=== PATIENT | male | born 1960 ===

== ENCOUNTER 2020-06-30 10:02 | Outpatient (CLI) | payer OTHER ==
--- NOTE | 2020-06-30 10:53 | SLEEP CARE CONSULTATION ---
Information from patient questionnaire entered by Ria Escobar. I have reviewed and concur with the information entered by Ria Escobar. This document represents the service I personally performed and the decisions made by me, Lima Fleming ARNP. History of Present Illness Service Date and Time: 06/30/2020 1002 Reason for Visit: New patient Chief Complaint: reports: Unrefreshed sleep (sometimes), Snoring, Observed pauses in breathing, Other (referral from ENT doctor). denies: Excessive daytime sleepiness, Frequent awakenings at night Date of Onset: unknown Usual bedtime: 10 pm Time it takes to fall asleep: approx 1 hour Snores at night: Yes (i believe) Observed to quit breathing while asleep: Yes Sleeps alone due to snoring: No Number of times waking at night: 1-2 Reasons for waking at night: reports: Other (i don't know). denies: Choking, Snoring, Gasping for air Toss, Turn, or Twitch while sleeping: Yes Recalls having dreams: Yes Usually gets out of bed at: 6 am Feels refreshed in the morning: Yes (sometimes he doesn't) Morning headache: No Sleepy or fatigued during the day: No Ever fallen asleep while driving: No Takes day naps: No Dreams during day naps: No Prior sleep studies: No Additional HPI information: I had the pleasure of seeing ROBYN MOSES today regarding the possibility of him having a sleep disorder. His current complaints are observed pauses in breathing and snoring according to his . He was seeing an ENT who referred him for evaluation. He does have a history of diabetes, taking insulin and hypertension. He states he gets white coat syndrome at the office and his blood pressure goes up. He did not take his morning blood pressure medications this morning as usual. - Parasomnia Symptoms Ever been unable to move upon waking from sleep: No Walks in sleep: No Talks in sleep: No Ever acted out dreams in sleep: No Ever felt weak in the knees when startled or emotional: No Bothered by creepy, crawly, restless sensations in legs: No Problems with memory or concentration: No Subjective Initial [place] Sleepiness Scale score: 7 (in 2020) Past Medical History Past Medical History: reports: Hypertension, Diabetes, Other (Goiter issue, had 1/2 throid out in 2004). denies: Arrythmia, Anxiety, Depression, Mood disorder, GERD Social History The patient's occupation is a [employer]. Patient is and lives in [place]. Have you smoked in the past 12 months: No Alcohol use: Yes Alcohol amount and frequency: 1 glass once a month Caffeine use: Yes Caffeine amount and frequency: 2 cups a day Family History Family history of sleep disordered breathing: No Allergies and Home Medications Drug allergies reviewed: Yes (NKDA) Home medication list reviewed: Yes Allergy and home medication list: Insulin Metformin Simvastatin Aspirin Loratidine Atorvastatin Review of Systems Weight loss over past 5 years: 30 Cardiovascular: reports: high blood pressure Ear/Nose/Throat: reports: wisdom teeth removed. denies: tonsillectomy Endocrine: reports: history of goiter Physical Exam Blood Pressure: 152/80 (usually elevated at office, no bp meds yet this am) Cuff size: long Heart Rate: 76 O2 Saturation: 98 Height: 5 ft 5 in Weight: 204 lb Body Mass Index: 33.9 BMI Classification: Obese Neck circumference: 18.75 (inches) Nostrils: patent to airflow Turbinates: normal Mouth and throat: narrow oropharynx Uvula visualization: 50% Mallampati Class II Tongue: enlarged in size with teeth newman on lateral edges Tonsils: 2+ Chin and jaw: normal size and position Neck: normal w/o lymphadenopathy or thyromegaly Heart: regular rate and rhythm Lungs: clear bilaterally Impression and Plan 1. Suspected Obstructive Sleep Apnea-Hypopnea Syndrome, as suggested by a history of loud and irregular snoring and observed cessation of breath while asleep. He has a history of diabetes and hypertension. I reviewed with the patient that a narrow oropharynx and obesity are common predisposing factors for obstructive sleep apnea-hypopnea syndrome. I recommend proceeding to polysomnography to confirm the diagnosis and to assess severity. If the patient has significant sleep disordered breathing, a manual CPAP titration study will also be performed to find the optimal treatment pressure. I informed the patient of what the sleep studies involve and after some discussion, obtained agreement to proceed. The pathophysiology of obstructive sleep apnea-hypopnea syndrome was discussed with the patient and health risks of cardiovascular and cerebrovascular disease if not treated. AAS brochure for obstructive sleep apnea-hypopnea syndrome given and reviewed. Risks of drowsy driving discussed in detail and patient advised to avoid long distance driving and to bone char puller at the first sign of drowsiness. Patient agreed to plan. 2. Elevated blood pressure with history of hypertension. His blood pressure was elevated at 215/104 with wrist BP cuff and 152/80 with long biceps cuff. He states he has anxiety at doctors offices and he forgot to take his medications this morning as usual. He denied any headache, chest pain, palpitations or shortness of breath in the office today. I advised him to go home and take his blood pressure medication and follow up with his PCP as needed. * Schedule polysomnography +- manual CPAP titration study and return in 1-2 weeks after the study to discuss result and initiate therapy. * Avoid long distance driving or driving when feeling sleepy. * Avoid alcohol, sedative and muscle relaxant around bedtime. * Attempt to lose weight. * Review instructions provided by trained office staff on how to prepare for the sleep study. * Return for follow-up after sleep study completed. Counseling Topics: Weight loss health impact Visit Type: In Office Time Spent with Patient (minutes): 31 Provider Statement: I spent 100% of the Face to Face Visit with the patient with greater than 50% spent counseling the patient and coordination of care.
[2020-06-30 10:54] VITALS: BP 152/80
== END 2020-06-30 10:03 | disposition home or self-care (01) ==
LOC: SC 10:02
PROVIDERS: ATTEND Nurse Practitioner Family
DX: R06.83 Snoring (principal); R06.81 Apnea, not elsewhere classified; I10 Essential (primary) hypertension; E66.9 Obesity, unspecified; Z68.33 Body mass index [BMI] 33.0-33.9, adult; E11.9 Type 2 diabetes mellitus without complications; Z79.4 Long term (current) use of insulin; Z79.899 Other long term (current) drug therapy
CPT/HCPCS: 99203; 99212

== ENCOUNTER 2021-05-12 06:31 | Day surgery (SDC) | payer OTHER ==
[~2021-05-12 06:31] MED LIST: CYCLOPENTOLATE 1% OPHTH DROPS 2 ML ONE; KETOROLAC 0.45% OPHTH DROPS ONE; PHENYLEPHRINE 2.5% OPHTH 2 ML DROPS ONE; PROPARACAINE 0.5% OPHTH DROPS 15 ML ONE
[2021-05-12] MEDS ORDERED: LACTATED RINGERS 1,000 ML IV ONE ×2 (06:39→07:45)
[2021-05-12] MEDS ORDERED: EPINEPHrine 1 MG/ML AMP ONE (06:54)
[2021-05-12] MEDS ORDERED: BRIMONIDINE 0.2% OPHTH DROPS 5 ML ONE (06:54)
[2021-05-12] MEDS ORDERED: TRIAMCIN/MOXIFLOX OPHTHALMIC 0.6 ML VIAL IO ONE ×2 (06:54→07:31)
[2021-05-12] MEDS ORDERED: TIMOLOL 0.5% OPHTH DROPS ONE (06:55)
[2021-05-12] MEDS ORDERED: VANCOMYCIN OPHTHALMI 8MG/0.8ML 8 MG/0.8 ML SYRINGE IO ONE ×2 (06:55→07:31)
[2021-05-12] MEDS ORDERED: BSS/LIDOCAINE/EPINEPHRINE 1 ML SYRINGE ONE (06:55)
[2021-05-12] MEDS ORDERED: MIDAZOLAM 2 MG/2 ML VIAL ONE (07:15)
[2021-05-12] MEDS ORDERED: fentaNYL 100 MCG/2 ML VIAL ONE (07:15)
--- NOTE | 2021-05-12 07:17 | ANESTHESIA ---
Pre-Anesthesia VS, & Labs - Diagnosis right cataract - Procedure right cataract extraction with intraocular lens Vital Signs: Temp Pulse Resp BP Pulse Ox 672941 C H 82 16 212/108 H 100 05/12/21 07:03 05/12/21 06:40 05/12/21 06:40 05/12/21 06:40 05/12/21 06:40 Height: 5 ft 5 in Weight (kg): 88 kg Body Mass Index: 32.3 BMI Classification: Obese - NPO >8 hours - Lab Results Current Lab Results: Laboratory Tests 05/12/21 06:54: POC Whole Bld Glucose 123 H Home Medications and Allergies Home Medications: Ambulatory Orders Aspirin [Aspirin EC] 81 mg PO DAILY 05/11/21 Atorvastatin [Lipitor] 20 mg PO DAILY 05/11/21 Dulaglutide [Trulicity] 1.5 mg SQ OAW 05/11/21 Insulin Glargine [Lantus Solostar] 27 unit INJ QPM 05/11/21 Loratadine [Claritin] 10 mg PO DAILY 05/11/21 Metformin HCl [Metformin ER Osmotic] 1,000 mg PO BID 05/11/21 Telmisartan/Hydrochlorothiazid [Micardis Hct 80-12.5 mg Tablet] 1 each PO DAILY 05/11/21 Aspirin [Aspirin EC] 81 mg PO DAILY 05/11/21 Atorvastatin [Lipitor] 20 mg PO DAILY 05/11/21 Dulaglutide [Trulicity] 1.5 mg SQ OAW 05/11/21 Insulin Glargine [Lantus Solostar] 27 unit INJ QPM 05/11/21 Loratadine [Claritin] 10 mg PO DAILY 05/11/21 Metformin HCl [Metformin ER Osmotic] 1,000 mg PO BID 05/11/21 Telmisartan/Hydrochlorothiazid [Micardis Hct 80-12.5 mg Tablet] 1 each PO DAILY 05/11/21 Allergies/Adverse Reactions: Allergies Allergy/AdvReac Type Severity Reaction Status Date / Time No Known Drug Allergies Allergy Verified 05/11/21 13:03 Anes History & Medical History - Anesthetic History Anesthesia Complications: reports: No previous complications - Medical History Cardiovascular: reports: Hypertension, High cholesterol Pulmonary: reports: None Gastrointestinal: reports: None Urinary: reports: None Musculoskeletal: reports: None Endocrine/Autoimmune: reports: Type 2 diabetes Skin: reports: None - Surgical History Eyes Ears Nose Throat (EENT): reports: Other (thyroidectomy) Exam General: Alert, Oriented x3 Dental: WNL Mouth Opening: Greater than 4 Fingerbreadths Neck Mobility: Normal Mallampati classification: II Thyromental Distance: greater than 6 cm Respiratory: Lungs clear Cardiovascular: Regular rate, Normal S1, Normal S2 Plan Anesthesia Type: MAC Consent for Procedure(s) Verified and Reviewed: Yes Code Status: Attempt Resuscitation ASA classification: 2-Mild systemic disease Is this case an emergency?: No
[2021-05-12] MEDS ORDERED: BRIMONIDINE 0.2% OPHTH DROPS 5 ML OPTH ONE (07:30)
[2021-05-12] MEDS ORDERED: EPINEPHrine 1 MG/ML AMP IR ONE (07:30)
[2021-05-12] MEDS ORDERED: TIMOLOL 0.5% OPHTH DROPS OPTH ONE (07:30)
[2021-05-12] MEDS ORDERED: BSS/LIDOCAINE/EPINEPHRINE 1 ML SYRINGE IO ONE (07:31)
[2021-05-12] MEDS ORDERED: PROPARACAINE 0.5% OPHTH DROPS 15 ML EACHEYE ONE (07:31)
[2021-05-12] MEDS ORDERED: LABETALOL 5 MG/1 ML 20 ML MDV ONE (07:34)
--- NOTE | 2021-05-12 07:56 | OPERATIVE REPORT ---
Operative Report - Other Other Information/Narrative: Date of Surgery: 05/12/21 Preop Dx: Visually significant cataract right eye. This was the first cataract surgery. Postop Dx: Same Procedure: Phacoemulsification with posterior chamber intraocular lens implant right eye Surgeon: Dr. Tucker Sanchez Anesthesia: Monitored anesthesia care Complications: None Operative Indications: This is a 60-year-old M with progressive vision loss in the right eye due to 1-2+ nuclear sclerotic, 3+ posterior subcapsular, and 2+ anterior subcapsular vacuolar cataract. Best corrected visual acuity was 20/60 with glare to hand motion vision in the right eye. Indications for surgery were: - Overall decrease in vision - Difficulty seeing words on a computer screen - Difficulty reading - Difficulty seeing words, closed captions, or game scores on TV - Difficulty seeing street signs - Difficulty driving in low light or at night - Difficulty driving at night because of headlights from other vehicles - Difficulty with glare or bright lights in any situation - Decreased acuity with firearms The patient was consented at length concerning the risks and benefits of cataract surgery after which the patient expressed a desire to proceed with surgery. Operative Procedure: The patient was taken into OR#3 and placed under monitored anesthesia care. A surgical time-out was conducted confirming correct patient, correct procedure, and correct surgical site. The patient was given topical anesthesia and then prepped and draped in the usual sterile fashion. The eye was entered at the 6 and 3 oclock positions. Intracameral Shugarcaine was injected into the anterior chamber followed by a dispersive viscoelastic. A continuous-tear curvilinear capsulorhexis was performed. The nucleus was hydrodissected and phacoemulsified. The cortex was evacuated using automated infusion and aspiration. A cohesive viscoelastic was injected into the capsular bag and a 21.0 diopter intraocular lens was inserted into the bag. Infusion and aspiration were used to evacuate the viscoelastic materials from the eye. The wounds were hydrated and the eye inflated to physiologic pressure using balanced salt solution. Approximately 0.25ml of a mixture of triamcinolone and moxifloxacin was injected trans-sclerally into the vitreous in the inferotemporal quadrant using a 30 gauge cannula. An additional 0.55ml of a mixture of triamcinolone, moxifloxacin, and vancomycin was injected subconjunctivally in the superior quadrant for infection and inflammation prophylaxis. Wound integrity was checked with Weck-Melanie sponges. The patient was taken from the operating room in good condition and given post-op instructions.
[2021-05-12 08:00] VITALS: BP 178/95
--- NOTE | 2021-05-12 08:15 | ANESTHESIA POST OP EVALUATION ---
Anesthesia Post Eval - Post Anesthesia Eval Vitals: Last Vital Signs Temp 36.7 C 05/12/21 07:43 Pulse 84 05/12/21 07:57 Resp 14 05/12/21 07:57 BP 178/95 H 05/12/21 07:57 Pulse Ox 96 05/12/21 07:57 CV Function Including HR & BP: Stable Pain Control: Satisfactory Nausea & Vomiting: Negative Mental Status: Baseline Respiratory Status: Airway Patent Hydration Status: Satisfactory Anesthesia Complications: None
== END 2021-05-12 06:32 | disposition home or self-care (01) ==
LOC: SDS 06:31
PROVIDERS: ATTEND Ophthalmology
DX: E11.36 Type 2 diabetes mellitus with diabetic cataract (principal); H25.811 Combined forms of age-related cataract, right eye; I10 Essential (primary) hypertension; E78.00 Pure hypercholesterolemia, unspecified; E66.9 Obesity, unspecified; Z68.32 Body mass index [BMI] 32.0-32.9, adult; Z79.82 Long term (current) use of aspirin; Z79.4 Long term (current) use of insulin; Z79.84 Long term (current) use of oral hypoglycemic drugs; Z79.899 Other long term (current) drug therapy
CPT/HCPCS: 66984; A9270; J3490; J7120

== ENCOUNTER 2021-08-11 06:29 | Day surgery (SDC) | payer OTHER ==
[2021-08-11] MEDS ORDERED: LACTATED RINGERS 1,000 ML IV ONE (06:40)
--- NOTE | 2021-08-11 07:23 | ANESTHESIA ---
Pre-Anesthesia VS, & Labs - Diagnosis L cataract - Procedure L PhacoIOL Vital Signs: Temp Pulse Resp BP Pulse Ox 36.4 C L 93 16 194/102 H 100 08/11/21 06:36 08/11/21 06:36 08/11/21 06:36 08/11/21 06:36 08/11/21 06:36 Height: 5 ft 5 in Weight (kg): 88.3 kg Body Mass Index: 32.3 BMI Classification: Obese - NPO >8 hours - Lab Results Current Lab Results: Laboratory Tests 08/11/21 06:51: POC Whole Bld Glucose 121 H Home Medications and Allergies Aspirin [Aspirin EC] 81 mg PO DAILY 05/11/21 Atorvastatin [Lipitor] 20 mg PO DAILY 05/11/21 Dulaglutide [Trulicity] 1.5 mg SQ OAW 05/11/21 Insulin Glargine [Lantus Solostar] 27 unit INJ QPM 05/11/21 Loratadine [Claritin] 10 mg PO DAILY 05/11/21 Metformin HCl [Metformin ER Osmotic] 1,000 mg PO BID 05/11/21 Telmisartan/Hydrochlorothiazid [Micardis Hct 80-12.5 mg Tablet] 1 each PO DAILY 05/11/21 Allergies/Adverse Reactions: Allergies Allergy/AdvReac Type Severity Reaction Status Date / Time No Known Drug Allergies Allergy Verified 08/11/21 06:20 Anes History & Medical History - Anesthetic History Anesthesia Complications: reports: No previous complications Family history of Anesthesia Complications: Denies Family history of Malignant Hyperthermia: Denies - Medical History Cardiovascular: reports: Hypertension, High cholesterol Pulmonary: reports: None Gastrointestinal: reports: None Urinary: reports: None Musculoskeletal: reports: None Endocrine/Autoimmune: reports: Type 2 diabetes Skin: reports: None - Surgical History Eyes Ears Nose Throat (EENT): reports: Cataracts, Other Exam General: Alert, Oriented x3, Cooperative Dental: WNL Mouth Openin Fingerbreadth Neck Mobility: Normal Mallampati classification: II Respiratory: Lungs clear Cardiovascular: Regular rate Plan Anesthesia Type: MAC Consent for Procedure(s) Verified and Reviewed: Yes Code Status: Attempt Resuscitation ASA classification: 3-Severe systemic disease Is this case an emergency?: No
[2021-08-11] MEDS ORDERED: MIDAZOLAM 2 MG/2 ML VIAL ONE ×2 (07:35→07:44)
[2021-08-11] MEDS ORDERED: TIMOLOL 0.5% OPHTH DROPS OPTH ONE (07:37)
[2021-08-11] MEDS ORDERED: BRIMONIDINE 0.2% OPHTH DROPS 5 ML OPTH ONE (07:37)
[2021-08-11] MEDS ORDERED: EPINEPHrine 1 MG/ML AMP IR ONE (07:37)
[2021-08-11] MEDS ORDERED: TRIAMCIN/MOXIFLOX OPHTHALMIC 0.6 ML VIAL IO ONE (07:38)
[2021-08-11] MEDS ORDERED: VANCOMYCIN OPHTHALMI 8MG/0.8ML 8 MG/0.8 ML SYRINGE IO ONE (07:38)
[2021-08-11] MEDS ORDERED: BSS/LIDOCAINE/EPINEPHRINE 1 ML SYRINGE IO ONE (07:38)
[2021-08-11] MEDS ORDERED: PROPARACAINE 0.5% OPHTH DROPS 15 ML EACHEYE ONE (07:38)
[2021-08-11] MEDS ORDERED: LACTATED RINGERS 800 ML IV ONE (07:55)
--- NOTE | 2021-08-11 08:01 | ANESTHESIA POST OP EVALUATION ---
Anesthesia Post Eval - Post Anesthesia Eval Vitals: Last Vital Signs Temp 36.9 C 08/11/21 07:55 Pulse 95 08/11/21 07:55 Resp 16 08/11/21 07:55 BP 175/96 H 08/11/21 07:55 Pulse Ox 100 08/11/21 07:55 CV Function Including HR & BP: Stable Pain Control: Satisfactory Nausea & Vomiting: Negative Mental Status: Baseline Respiratory Status: Airway Patent Hydration Status: Satisfactory Anesthesia Complications: None
[2021-08-11 08:02] VITALS: BP 151/108
--- NOTE | 2021-08-11 08:07 | OPERATIVE REPORT ---
Operative Report - Other Other Information/Narrative: Date of Surgery: 08/11/21 Preop Dx: Visually significant cataract left eye. Cataract surgery was performed in the right eye on . Postop Dx: Same Procedure: Phacoemulsification with posterior chamber intraocular lens implant left eye Surgeon: Dr. Tucker Sanchez Anesthesia: Monitored anesthesia care Complications: None Operative Indications: This is a 60-year-old M with progressive vision loss in the left eye due to 1-2+ nuclear sclerotic, 2+ posterior subcapsular, and 2+ anterior capsular cataract. Best corrected visual acuity was 20/25 with glare to 20/100 vision in the left eye. Indications for surgery were: - Overall decrease in vision - Difficulty seeing words on a computer screen - Difficulty reading - Difficulty seeing words, closed captions, or game scores on TV - Difficulty driving in low light or at night - Difficulty driving at night because of headlights from other vehicles - Difficulty with glare or bright lights in any situation - Decreased acuity with firearms The patient was consented at length concerning the risks and benefits of cataract surgery after which the patient expressed a desire to proceed with surgery. Operative Procedure: The patient was taken into OR#3 and placed under monitored anesthesia care. A surgical time-out was conducted confirming correct patient, correct procedure, and correct surgical site. The patient was given topical anesthesia and then prepped and draped in the usual sterile fashion. The eye was entered at the 6 and 3 oclock positions. Intracameral Shugarcaine was injected into the anterior chamber followed by a dispersive viscoelastic. A continuous-tear curvilinear capsulorhexis was performed. The nucleus was hydrodissected and phacoemulsified. The cortex was evacuated using automated infusion and aspiration. A cohesive viscoelastic was injected into the capsular bag and a 22.5 diopter intraocular lens was inserted into the bag. Infusion and aspiration were used to evacuate the viscoelastic materials from the eye. The wounds were hydrated and the eye inflated to physiologic pressure using balanced salt solution. Approximately 0.25ml of a mixture of triamcinolone and moxifloxacin was injected trans-sclerally into the vitreous in the inferotemporal quadrant using a 30 gauge cannula. An additional 0.55ml of a mixture of triamcinolone, moxifloxacin, and vancomycin was injected subconjunctivally in the superior quadrant for infection and inflammation prophylaxis. Wound integrity was checked with Weck-Melanie sponges. The patient was taken from the operating room in good condition and given post-op instructions.
== END 2021-08-11 06:30 | disposition home or self-care (01) ==
LOC: SDS 06:29
PROVIDERS: ATTEND Ophthalmology
DX: E11.36 Type 2 diabetes mellitus with diabetic cataract (principal); H25.812 Combined forms of age-related cataract, left eye; E11.3293 Type 2 diabetes mellitus with mild nonproliferative diabetic retinopathy without macular edema, bilateral; Z79.4 Long term (current) use of insulin; Z79.84 Long term (current) use of oral hypoglycemic drugs; Z79.899 Other long term (current) drug therapy; Z98.41 Cataract extraction status, right eye; E66.9 Obesity, unspecified; Z68.32 Body mass index [BMI] 32.0-32.9, adult
CPT/HCPCS: 66984; A9270; J3490; J7120

== ENCOUNTER 2022-09-02 09:59 | Outpatient (CLI) | payer OTHER | END 2022-09-02 23:59 | disposition short-term general hospital (02) | LOC: EMS 09:59 | DX: R07.9 Chest pain, unspecified (principal) | CPT/HCPCS: A0425; A0427 ==

== ENCOUNTER 2022-09-14 19:59 | Emergency (ER) | payer OTHER ==
[2022-09-14 21:15] LABS: CALCIUM 7.8 mg/dL (8.5-10.3); CREATININE 4.1 mg/dL (0.6-1.2)
--- NOTE | 2022-09-14 21:47 | ED Physician Documentation ---
History of Present Illness - Stated complaint Stated Complaint: MEDICATION REQUEST FROM DOC - Chief complaint Chief Complaint: General - History obtained from History obtained from: Patient, Family - History of Present Illness Timing: Today - Additonal information Additional information: Chandler Allred is a 61-year-old male with a history of diabetes hypertension and coronary artery disease. He has recently had a stent placed and he is known to have renal insufficiency. The patient reports that he is feeling much improved after getting his stent placed and has an appointment to follow-up with his laborer carpentry dock and with his dredging inspector. He was asked today to come to the emergency department when a blood specimen showed a potassium of 6.0. Review of Systems Constitutional: denies: Fever Ears: denies: Ear pain Nose: denies: Congestion Throat: denies: Sore throat Cardiac: denies: Chest pain / pressure, Palpitations Respiratory: denies: Dyspnea, Cough GI: denies: Abdominal Pain, Nausea, Vomiting, Constipation, Diarrhea : denies: Dysuria, Frequency PD PAST MEDICAL HISTORY - Past Medical History Cardiovascular: Hypertension, High cholesterol Respiratory: None Endocrine/Autoimmune: Type 2 diabetes GI: None : None HEENT: Chronic vision loss Psych: None Musculoskeletal: None Derm: None - Past Surgical History HEENT: Cataracts, Other - Present Medications Home Medications: Ambulatory Orders Medication Instructions Recorded Confirmed Aspirin [Aspirin EC] 81 mg PO DAILY 05/11/21 08/11/21 Atorvastatin [Lipitor] 20 mg PO DAILY 05/11/21 08/11/21 Dulaglutide [Trulicity] 1.5 mg SQ OAW 05/11/21 08/11/21 Insulin Glargine [Lantus Solostar] 27 unit INJ QPM 05/11/21 08/11/21 Loratadine [Claritin] 10 mg PO DAILY 05/11/21 08/11/21 Metformin HCl [Metformin ER 1,000 mg PO BID 05/11/21 08/11/21 Osmotic] Telmisartan/Hydrochlorothiazid 1 each PO DAILY 05/11/21 08/11/21 [Micardis Hct 80-12.5 mg Tablet] - Allergies Allergies/Adverse Reactions: Allergies Allergy/AdvReac Type Severity Reaction Status Date / Time No Known Drug Allergies Allergy Verified 09/14/22 20:31 PD ED PE NORMAL - Vitals Vital signs reviewed: Yes (hypertensive ) - General General: Alert and oriented X 3, No acute distress, Well developed/nourished - HEENT HEENT: Atraumatic, PERRL, EOMI - Neck Neck: Supple, no meningeal sign, No bony TTP - Cardiac Cardiac: RRR, No murmur - Respiratory Respiratory: No respiratory distress, Clear bilaterally - Abdomen Abdomen: Normal bowel sounds, Soft, Non tender, Non distended, No organomegaly - Back Back: No CVA TTP, No spinal TTP - Derm Derm: Normal color, Warm and dry, No rash - Extremities Extremities: No deformity, No edema - Neuro Neuro: Alert and oriented X 3, imaging assistant 2-12 intact, No motor deficit, No sensory deficit, Normal speech Eye Opening: Spontaneous Motor: Obeys Commands Verbal: Oriented GCS Score: 15 - Psych Psych: Normal mood, Normal affect Results - Vitals Vitals: Vital Signs - 24 hr 09/14/22 09/14/22 09/14/22 20:29 20:31 21:51 Temperature 36.7 C Heart Rate 82 62 Respiratory 17 17 18 Rate Blood Pressure 203/82 H 189/98 H O2 Saturation 100 100 Oxygen O2 Source Room air - Labs Labs: Laboratory Tests 09/14/22 20:58 Sodium 137 Potassium 5.0 Chloride 109 Carbon Dioxide 22 Anion Gap 6.0 BUN 55 H Creatinine 4.1 H Estimated GFR (MDRD) 15 L Glucose 106 H Calcium 7.8 L PD Medical Decision Making - ED course Complexity details: reviewed results, re-evaluated patient, considered differential, d/w patient, d/w family Reviewed Lab Results: We evaluated a basic metabolic panel demonstrating a potassium of 5.0, BUN is elevated at 55 and creatinine elevated at 4.1 ED course: This 61-year-old patient has been sent to the emergency department with a laboratory draw done this morning showing a potassium elevated at 6.0. The redraw here today shows a normal potassium at 5.0. An intervention is not indicated. The patient is discharged home. He indicates to me that he is feeling much improved after getting his stent placed. I have asked patient to follow-up with his dredging inspector as he is likely have continued problems with his kidneys. Departure - Departure Disposition: 01 Home, Self Care Clinical Impression: Potassium disorder Condition: Stable Instructions: ED Diet Renal Follow-Up: JOSE DANIEL Lopez [Provider Group] Comments: Chandler, today it looks like your potassium is normal at 5.0. You do have evidence of renal insufficiency and potassium is going to be a concern. I have left some instructions about a diet for potassium with renal insufficiency. A follow-up with your dredging inspector is indicated and we are expecting continued improvement in your renal function. Discharge Date/Time: 09/14/22 21:53
[2022-09-14 21:53] VITALS: BP 189/98
== END 2022-09-14 21:53 | disposition home or self-care (01) ==
LOC: ED 19:59
DX: E87.5 Hyperkalemia (principal); I10 Essential (primary) hypertension; E78.00 Pure hypercholesterolemia, unspecified; E11.9 Type 2 diabetes mellitus without complications; I25.10 Atherosclerotic heart disease of native coronary artery without angina pectoris; Z95.5 Presence of coronary angioplasty implant and graft; Z79.82 Long term (current) use of aspirin; Z79.899 Other long term (current) drug therapy; Z79.84 Long term (current) use of oral hypoglycemic drugs; Z79.4 Long term (current) use of insulin
CPT/HCPCS: 36415; 80048; 99283

== ENCOUNTER 2022-09-30 10:32 | Outpatient (CLI) | payer OTHER | END 2022-09-30 23:59 | disposition short-term general hospital (02) | LOC: EMS 10:32 | DX: R55 Syncope and collapse (principal); K92.1 Melena; R10.31 Right lower quadrant pain; R10.32 Left lower quadrant pain; Z79.02 Long term (current) use of antithrombotics/antiplatelets | CPT/HCPCS: A0425; A0427 ==

== ENCOUNTER 2023-10-09 12:00 | Outpatient (CLI) | payer OTHER ==
--- NOTE | 2023-10-10 08:22 | XRAY Report ---
PROCEDURE: Ankle 3+V RT INDICATIONS: PAIN IN RIGHT ANKLE TECHNIQUE: 3 views of the ankle were acquired. COMPARISON: None. FINDINGS: Bones: No fractures or dislocations. Ankle mortise is normally aligned. No suspicious bony lesions . Mild osteoarthritic changes. Posterior calcaneal spurring at Achilles tendon insertion. Soft tissues: No tibiotalar joint effusion. Soft tissue swelling. IMPRESSION: 1. No acute bony abnormality. 2. Mild osteoarthritis. 3. Posterior calcaneal spurring at the Achilles tendon insertion. Reviewed by: Dianne Ramsey MD on 10/10/2023 8:20 AM PDT Approved by: Dianne Ramsey MD on 10/10/2023 8:20 AM PDT Station ID: [id number]
== END 2023-10-09 12:15 | disposition home or self-care (01) ==
LOC: DI.N 12:00
PROVIDERS: ATTEND Physician Assistant Medical
DX: M19.071 Primary osteoarthritis, right ankle and foot (principal); M77.31 Calcaneal spur, right foot

== ENCOUNTER 2024-02-07 08:11 | Outpatient (CLI) | payer OTHER | END 2024-02-07 08:12 | disposition short-term general hospital (02) | LOC: EMS 08:11 | DX: R10.13 Epigastric pain (principal); R11.0 Nausea; R61 Generalized hyperhidrosis; I25.2 Old myocardial infarction; Z99.2 Dependence on renal dialysis | CPT/HCPCS: A0425; A0427 ==